=== PATIENT | female | born 1975 | race Caucasian/White ===

== ENCOUNTER 2024-04-13 16:55 | Emergency (ER) | payer OTHER, SELFPAY ==
[2024-04-13] MEDS ORDERED: Lorazepam 1 MG TAB ONE (18:07)
[2024-04-13] MEDS ORDERED: Sulfameth/Trimethoprim DS 800-160mg TAB ONE (18:07)
[2024-04-13] MEDS ORDERED: Ketorolac Tromethamine 30 MG (1 mL) VIAL ONE (18:07)
[2024-04-13] MEDS ORDERED: Cephalexin 250 MG CAP ONE (18:08)
== END 2024-04-13 18:23 | disposition home or self-care (01) ==
LOC: CSHERS 16:55
DX: L03.113 Cellulitis of right upper limb (principal); E11.9 Type 2 diabetes mellitus without complications; F17.210 Nicotine dependence, cigarettes, uncomplicated
CPT/HCPCS: 96372; 99283; J1885